=== PATIENT | male | born 1965 | race African-American/Black ===

== ENCOUNTER 2020-03-11 10:25 | Emergency (ER) | payer MEDICAID, OTHER ==
[~2020-03-11] VITALS: Ht 182.9 cm; Wt 82.0 kg
[2020-03-11] MEDS ORDERED: ONDANSETRON HCL 4MG/2ML INJ IV STA (10:39)
[2020-03-11] MEDS ORDERED: KETOROLAC 30MG/ML VIAL IV STA (10:39)
[2020-03-11] MEDS ORDERED: SODIUM CHLORIDE 0.9% 1,000 ML IV ONE ×2 (10:45)
[2020-03-11] MEDS ORDERED: HYDROMORPHONE HCL/PF 2MG/ML CPJ IV ONE ×2 (10:45→14:00)
[2020-03-11] MEDS ORDERED: HYDROMORPHONE HCL/PF 2MG/ML CPJ IV SCH (11:00)
[2020-03-11 11:01] LABS: CHLORIDE 105 mEq/L (98-107)
[2020-03-11 11:02] LABS: BASOPHILS % 0.8 % (0.0-2.0); EOSINOPHILS % 0.2 % (0.0-5.0); HEMATOCRIT. 46.3 % (42.0-52.0); LYMPHOCYTES % 24.2 % (20.0-50.0); MEAN CORPUSCULAR VOLUME 98.3 fL (80.0-94.0); MEAN PLATELET VOLUME 8.8 fl (7.4-10.4); MONOCYTES % 7.3 % (2.0-8.0); NEUTROPHILS % 67.5 % (40.0-76.0); PLATELET 190 x1000/uL (130-400); RED BLOOD CELL COUNT 4.71 mill/uL (4.7-6.1); RED CELL DISTRIBUTION WIDTH 14.6 % (11.6-14.6)
[2020-03-11 11:08] LABS: INR 1.1; PROTHROMBIN TIME 11.8 sec (9.6-11.0)
[2020-03-11 15:34] VITALS: BP 136/87
== END 2020-03-11 15:54 | disposition short-term general hospital (02) ==
LOC: ER 10:43 → CANBEDREQ 16:48
DX: K85.90 Acute pancreatitis without necrosis or infection, unspecified (principal); R11.10 Vomiting, unspecified; I10 Essential (primary) hypertension; Z88.6 Allergy status to analgesic agent
CPT/HCPCS: 36415; 76705; 80053; 83690; 85025; 85610; 93005; 96361; 96374; 96375; 96376; 99285; J1170; J1885; J2405; J7030

== ENCOUNTER 2020-06-06 08:20 | Inpatient (IN) | payer OTHER ==
[~2020-06-06] VITALS: Ht 185.4 cm; Wt 72.7 kg
[2020-06-06] MEDS ORDERED: SODIUM CHLORIDE 0.9% 1,000 ML IV ONE (08:45)
[2020-06-06 09:22] LABS: HEMOGLOBIN. 15.9 g/dL (14.0-18.0); MEAN CORPUSCULAR HEMOGLOBIN 33.6 pg (28.0-32.0); MEAN CORPUSCULAR VOLUME 101.7 fL (80.0-94.0); MEAN PLATELET VOLUME 9.4 fl (7.4-10.4); PLATELET 198 x1000/uL (130-400); RED BLOOD CELL COUNT 4.72 mill/uL (4.7-6.1); RED CELL DISTRIBUTION WIDTH 15.3 % (11.6-14.6)
[2020-06-06 09:28] LABS: CHLORIDE 94 mEq/L (98-107)
[2020-06-06] MEDS ORDERED: POTASSIUM CHLORIDE 20MEQ TABLET SR PO ONE (09:30)
[2020-06-06 09:32] LABS: ETHANOL BLOOD < 10 mg/dL
[2020-06-06 09:44] LABS: PLATELET ESTIMATE NORMAL
[2020-06-06 12:07] LABS: CLARITY URINE CLEAR (CLEAR); COLOR URINE YELLOW (YELLOW); KETONES URINE 1+ (NEGATIVE); LEUKOCYTE ESTERASE URINE NEGATIVE (NEGATIVE); NITRITE URINE NEGATIVE (NEGATIVE); OCCULT BLOOD URINE 2+ (NEGATIVE); PROTEIN URINE 2+ (NEGATIVE); SPECIFIC GRAVITY URINE 1.019 (1.005-1.030)
[2020-06-06 12:29] LABS: *AMPHETAMINES SCREEN URINE NEGATIVE (NEGATIVE); *BARBITURATES SCREEN URINE NEGATIVE (NEGATIVE); *BENZODIAZEPINES SCREEN URINE NEGATIVE (NEGATIVE); *COCAINE SCREEN URINE NEGATIVE (NEGATIVE); METHADONE URINE SCREEN NEGATIVE (NEGATIVE)
[2020-06-06 12:30] LABS: OPIATES URINE SCREEN NEGATIVE (NEGATIVE)
[2020-06-06 12:32] LABS: PHENCYCLIDINE URINE SCREEN NEGATIVE (NEGATIVE)
[2020-06-06 12:33] LABS: CANNABINOID URINE SCREEN NEGATIVE (NEGATIVE)
[2020-06-06] MEDS ORDERED: LORAZEPAM 2MG/ML CPJ IV PRN (13:45)
[2020-06-06] MEDS ORDERED: ONDANSETRON HCL 4MG/2ML INJ IV PRN (13:45)
[2020-06-06] MEDS ORDERED: FOLIC ACID 1 MG, THIAMINE HCL 100 MG, MVI, ADULT NO.1 10 ML in DEXTROSE 5% WATER 1,000 ML IV ONE ×4 (14:00)
[2020-06-06] MEDS: CHLORDIAZEPOXIDE 25MG CAPSULE PO SCH ×2 (15:11→21:45)
[2020-06-06] MEDS ORDERED: SODIUM BICARBONATE 8.4% 1 MEQ/ML 50ML SYR IV NR (19:30)
[2020-06-06 21:30] VITALS: BP 126/76
[2020-06-06] MEDS: LEVETIRACETAM 500MG TABLET PO SCH (21:45)
[2020-06-06 21:51] VITALS: BP 119/98
[2020-06-07] VITALS (7 sets, daily range): BP systolic 118–155; BP diastolic 74–98
[2020-06-07] MEDS: CHLORDIAZEPOXIDE 25MG CAPSULE PO SCH ×2 (05:54→13:37)
[2020-06-07] MEDS: LEVETIRACETAM 500MG TABLET PO SCH (08:07)
[2020-06-07 08:22] LABS: BASOPHILS % 0.2 % (0.0-2.0); EOSINOPHILS % 0.1 % (0.0-5.0); HEMATOCRIT. 45.1 % (42.0-52.0); HEMOGLOBIN. 15.3 g/dL (14.0-18.0); LYMPHOCYTES % 10.2 % (20.0-50.0); MEAN CORPUSCULAR VOLUME 100.3 fL (80.0-94.0); MEAN PLATELET VOLUME 9.8 fl (7.4-10.4); MONOCYTES % 6.4 % (2.0-8.0); NEUTROPHILS % 83.1 % (40.0-76.0); PLATELET 177 x1000/uL (130-400); RED BLOOD CELL COUNT 4.49 mill/uL (4.7-6.1); RED CELL DISTRIBUTION WIDTH 15.1 % (11.6-14.6)
[2020-06-07 09:31] LABS: CHLORIDE 102 mEq/L (98-107)
[2020-06-07 09:39] LABS: PHOSPHORUS 2.5 mg/dL (2.5-4.9)
[2020-06-07] MEDS ORDERED: MULT-1146 MT (13:13)
[2020-06-07] MEDS ORDERED: KEPP500 PO (13:13)
[2020-06-07] MEDS ORDERED: THIA50TA12 MT (13:13)
[2020-06-07] MEDS ORDERED: FOLI-43 MT (13:13)
[2020-06-07] MEDS ORDERED: L25 PO (13:13)
== END 2020-06-07 18:22 | disposition home or self-care (01) | DRG 52 ==
LOC: ER 09:00 → 3WST 13:04 → ENRESERV 19:55
PROVIDERS: ADMIT Internal Medicine; ATTEND Internal Medicine
DX: G93.41 Metabolic encephalopathy (principal); R56.9 Unspecified convulsions; F10.139 Alcohol abuse with withdrawal, unspecified; Y90.9 Presence of alcohol in blood, level not specified; E87.1 Hypo-osmolality and hyponatremia; E87.6 Hypokalemia; E87.8 Other disorders of electrolyte and fluid balance, not elsewhere classified; R74.01 Elevation of levels of liver transaminase levels; Z88.5 Allergy status to narcotic agent
CPT/HCPCS: 36415; 70551; 71045; 80048; 80053; 80305; 80320; 81003; 83735; 84100; 84484; 85025; 93005; 96365; 99291; J2060; J3411; J3490; J7030; J7070; G0480

== ENCOUNTER 2020-07-03 15:55 | Emergency (ER) | payer OTHER ==
[~2020-07-03] VITALS: Ht 185.4 cm; Wt 85.0 kg
[~2020-07-03 15:55] MED LIST: FOLI-43 MT; KEPP500 PO; L25 PO; MULT-1146 MT; THIA50TA12 MT
[2020-07-03 16:52] LABS: BASOPHILS % 0.7 % (0.0-2.0); EOSINOPHILS % 1.1 % (0.0-5.0); HEMATOCRIT. 43.3 % (42.0-52.0); HEMOGLOBIN. 14.7 g/dL (14.0-18.0); LYMPHOCYTES % 40.6 % (20.0-50.0); MEAN CORPUSCULAR HEMOGLOBIN 33.6 pg (28.0-32.0); MEAN CORPUSCULAR VOLUME 99.2 fL (80.0-94.0); MEAN PLATELET VOLUME 9.2 fl (7.4-10.4); MONOCYTES % 6.3 % (2.0-8.0); NEUTROPHILS % 51.3 % (40.0-76.0); PLATELET 176 x1000/uL (130-400); RED BLOOD CELL COUNT 4.37 mill/uL (4.7-6.1)
[2020-07-03] MEDS ORDERED: LORAZEPAM 2MG/ML CPJ IV ONE (17:00)
[2020-07-03] MEDS ORDERED: SODIUM CHLORIDE 0.9% 1,000 ML IV ONE (17:00)
[2020-07-03 18:42] LABS: CHLORIDE 104 mEq/L (98-107)
[2020-07-03] MEDS ORDERED: KEPP500 MT (20:03)
[2020-07-03 20:32] VITALS: BP 145/88
== END 2020-07-03 20:47 | disposition home or self-care (01) ==
LOC: ER 15:55
DX: F10.239 Alcohol dependence with withdrawal, unspecified (principal); Y90.9 Presence of alcohol in blood, level not specified; R56.9 Unspecified convulsions; Z88.6 Allergy status to analgesic agent; Z20.822 Contact with and (suspected) exposure to COVID-19
CPT/HCPCS: 36415; 71045; 80053; 83605; 83880; 84484; 85025; 93005; 96374; 99285; C9803; J2060; J7030; U0003

== ENCOUNTER 2020-08-27 06:51 | Emergency (ER) | payer MEDICAID, OTHER ==
[~2020-08-27] VITALS: Ht 177.8 cm; Wt 69.0 kg
[~2020-08-27 06:51] MED LIST changes: +KEPP500 MT
[2020-08-27] MEDS ORDERED: ONDANSETRON HCL 4MG/2ML INJ IV STA (06:57)
[2020-08-27] MEDS ORDERED: FAMOTIDINE 20MG/2ML VIAL IV ONE (07:00)
[2020-08-27] MEDS ORDERED: SODIUM CHLORIDE 0.9% 1,000 ML IV ONE (07:00)
[2020-08-27] MEDS ORDERED: LEVETIRACETAM 500MG PREMIX 100 ML IV NR (07:15)
[2020-08-27] MEDS ORDERED: DEXT 5%/0.9% NACL 1,000 ML IV NR (07:15)
[2020-08-27] MEDS ORDERED: MAGNESIUM/ALUMINUM HYDROXIDE/SIMETHICONE 30ML UDC PO NR (07:15)
[2020-08-27 07:36] LABS: CHLORIDE 94 mEq/L (98-107)
[2020-08-27 07:37] LABS: BASOPHILS % 0.7 % (0.0-2.0); HEMATOCRIT. 42.1 % (42.0-52.0); HEMOGLOBIN. 14.3 g/dL (14.0-18.0); LYMPHOCYTES % 41.9 % (20.0-50.0); MEAN CORPUSCULAR HEMOGLOBIN 34.8 pg (28.0-32.0); MEAN CORPUSCULAR VOLUME 102.2 fL (80.0-94.0); MEAN PLATELET VOLUME 8.5 fl (7.4-10.4); MONOCYTES % 9.7 % (2.0-8.0); NEUTROPHILS % 46.7 % (40.0-76.0); PLATELET 193 x1000/uL (130-400); RED BLOOD CELL COUNT 4.12 mill/uL (4.7-6.1); RED CELL DISTRIBUTION WIDTH 14.8 % (11.6-14.6)
[2020-08-27 07:38] LABS: INR 1.3; PROTHROMBIN TIME 13.5 sec (9.6-11.0)
[2020-08-27 07:39] LABS: ETHANOL BLOOD 30 mg/dL
[2020-08-27 07:45] LABS: CREATINE KINASE 44 IU/L (39-308)
[2020-08-27] MEDS ORDERED: MULTIVITAMINS,THER W-MINERALS TABLET PO NR (07:45)
[2020-08-27] MEDS ORDERED: FOLIC ACID 1 MG, THIAMINE HCL 100 MG in DEXTROSE 5% WATER 1,000 ML IV NR (07:45)
[2020-08-27 14:40] VITALS: BP 141/97
== END 2020-08-27 15:20 | disposition short-term general hospital (02) ==
LOC: ER 06:51 → CANBEDREQ 14:22 → ER 15:20
DX: R13.10 Dysphagia, unspecified (principal); R06.00 Dyspnea, unspecified; R11.2 Nausea with vomiting, unspecified; E87.2 Acidosis; K82.4 Cholesterolosis of gallbladder; F10.129 Alcohol abuse with intoxication, unspecified; Y90.1 Blood alcohol level of 20-39 mg/100 ml; F17.200 Nicotine dependence, unspecified, uncomplicated; R56.9 Unspecified convulsions; Z71.6 Tobacco abuse counseling; Z88.6 Allergy status to analgesic agent
CPT/HCPCS: 36415; 71045; 76705; 80053; 80320; 82550; 83605; 83690; 84145; 84484; 85025; 85610; 87040; 93005; 96365; 96366; 96367; 96368; 96375; 99285; J1953; J2405; J3411; J3490; J7030; J7042; J7070; Z7610; G0480

== ENCOUNTER 2021-03-17 20:12 | Emergency (ER) | payer MEDICAID, OTHER ==
[~2021-03-17] VITALS: Ht 185.4 cm; Wt 85.0 kg
[2021-03-17 20:47] VITALS: BP 133/87
[2021-03-17] MEDS ORDERED: HYDROCODONE/ACETAMINOPHEN 5/325MG TABLET PO ONE (23:15)
[2021-03-17 23:47] LABS: BASOPHILS % 1.5 % (0.0-2.0); EOSINOPHILS % 2.4 % (0.0-5.0); HEMATOCRIT. 41.8 % (42.0-52.0); HEMOGLOBIN. 14.3 g/dL (14.0-18.0); LYMPHOCYTES % 58.1 % (20.0-50.0); MEAN CORPUSCULAR HEMOGLOBIN 30.5 pg (28.0-32.0); MEAN PLATELET VOLUME 8.5 fl (7.4-10.4); MONOCYTES % 6.7 % (2.0-8.0); NEUTROPHILS % 31.3 % (40.0-76.0); PLATELET 219 x1000/uL (130-400); RED BLOOD CELL COUNT 4.69 mill/uL (4.7-6.1); RED CELL DISTRIBUTION WIDTH 15.3 % (11.6-14.6)
[2021-03-17 23:57] LABS: CHLORIDE 108 mEq/L (98-107)
[2021-03-18] MEDS ORDERED: T3 PO (00:25)
== END 2021-03-18 00:59 | disposition home or self-care (01) ==
LOC: ER 20:12
DX: R25.2 Cramp and spasm (principal); M54.9 Dorsalgia, unspecified; I10 Essential (primary) hypertension; R56.9 Unspecified convulsions; N28.9 Disorder of kidney and ureter, unspecified; Z88.5 Allergy status to narcotic agent
CPT/HCPCS: 36415; 80053; 85025; 93970; 99284

== ENCOUNTER 2023-01-28 03:38 | Emergency (ER) | payer OTHER ==
[~2023-01-28] VITALS: Ht 185.4 cm; Wt 84.0 kg
[~2023-01-28 03:38] MED LIST changes: +T3 PO
[2023-01-28 03:49] VITALS: TEMP 98.9; O2SAT 98
[2023-01-28 07:30] VITALS: BP 113/86; PULSE 79; RESP 18
[2023-01-28] MEDS ORDERED: KETOROLAC 60MG/2ML VIAL IM ONE (07:30)
[2023-01-28] MEDS ORDERED: IBUP-2029 MT (08:37)
== END 2023-01-28 09:13 | disposition home or self-care (01) ==
LOC: ER 03:38
DX: M25.561 Pain in right knee (principal); I10 Essential (primary) hypertension; Z88.5 Allergy status to narcotic agent; Z79.899 Other long term (current) drug therapy; W18.30XA Fall on same level, unspecified, initial encounter; Y93.9 Activity, unspecified; Y92.89 Other specified places as the place of occurrence of the external cause; Y99.8 Other external cause status
CPT/HCPCS: 99283; 73562; 96372; J1885